=== PATIENT | female | born 1975 | race Caucasian/White ===

== ENCOUNTER 2018-01-01 12:36 | Emergency (ER) | payer OTHER ==
[~2018-01-01] VITALS: Wt 112.0 kg
[~2018-01-01 12:36] MED LIST: HYDROXYZINE HCL25 MG PO; MEDROL DOSEPAK4 MG PO; MOBIC15 MG PO; PRILOSEC20 M1 PO; PROAIR HFA8.5 GM INH; SINGULAIR10 M1 PO; [UNRECOGNIZED DRUG - REMARK]
== END 2018-01-01 15:09 | disposition home or self-care (01) ==
LOC: ED 12:36
DX: S46.911A Strain of unspecified muscle, fascia and tendon at shoulder and upper arm level, right arm, initial encounter (principal); S50.11XA Contusion of right forearm, initial encounter; Z79.899 Other long term (current) drug therapy; Z88.2 Allergy status to sulfonamides; Z88.1 Allergy status to other antibiotic agents; W22.8XXA Striking against or struck by other objects, initial encounter; Y93.89 Activity, other specified; Y92.89 Other specified places as the place of occurrence of the external cause; Y99.9 Unspecified external cause status